=== PATIENT | female | born 1985 | race Hispanic/Latino ===

== ENCOUNTER 2017-08-31 11:06 | Emergency (ER) | payer MEDICAID, OTHER ==
[2017-08-31 13:06] LABS: APPEARANCE,URINE Clear (CLEAR); BILIRUBIN,URINE Negative (NEGATIVE); COLOR,URINE Yellow (YELLOW); GLUCOSE, URINE (UA) Negative (NEGATIVE); KETONES,URINE Negative (NEGATIVE); LEUKOCYTE ESTERASE ,URINE Negative (NEGATIVE); NITRATE,URINE Negative (NEGATIVE); OCCULT BLOOD,URINE Small (NEGATIVE); PROTEIN,URINE Negative (NEGATIVE); UROBILINOGEN,URINE 0.2 mg/dL (0.2-1.0)
[2017-08-31 13:09] LABS: HCG,QUAL RESULT NEGATIVE (NEGATIVE)
[2017-08-31] MEDS ORDERED: KETOROLAC TROMETHAMINE 30MG/ML ONE (13:25)
[2017-08-31 13:26] LABS: BACTERIA,URINE Rare /HPF (None Seen); SQUAMOUS EPITHELIAL CELL,UR Rare /HPF (0-2); WBC,URINE 0-1 /HPF (0-1)
== END 2017-08-31 14:00 | disposition home or self-care (01) ==
LOC: EDH 11:06
DX: S30.0XXA Contusion of lower back and pelvis, initial encounter (principal); Z98.51 Tubal ligation status; W07.XXXA Fall from chair, initial encounter; Y93.89 Activity, other specified; Y92.89 Other specified places as the place of occurrence of the external cause; Y99.8 Other external cause status
CPT/HCPCS: 72100; 81001; 81025; 96372; 99285; J1885

== ENCOUNTER 2018-10-12 16:16 | Emergency (ER) | payer OTHER | END 2018-10-12 16:49 | disposition home or self-care (01) | LOC: EDH 16:16 | DX: S80.12XA Contusion of left lower leg, initial encounter (principal); Z90.710 Acquired absence of both cervix and uterus; V49.49XA Driver injured in collision with other motor vehicles in traffic accident, initial encounter; Y93.89 Activity, other specified; Y92.89 Other specified places as the place of occurrence of the external cause; Y99.8 Other external cause status | CPT/HCPCS: 73590 ==